=== PATIENT | male | born 1955 | race Caucasian/White ===

== ENCOUNTER → 2018-05-01 | Outpatient (CLI) | payer OTHER ==
[~2018-05-01] MED LIST: REGADENOSON 0.4 MG/5 ML DISP.SYRIN. IV ONE
--- NOTE | 2018-05-01 16:37 | PCVCIMAG ---
APPROVED REPORT Imaging Protocol: Rest Tc-99m/Stress Tc-99m 1 day Study performed: 05/01/2018 09:37:09 Indication: MURMUR, RISK STRATIFICATION, PRE-OP(KNEE) Patient Location: Out-Patient Stress Nurse: Karen Crowell RN [place] Tech:KAROLINA StoutMT Ht: 5 ft 10 in Wt: 275 lbs BSA: 2.39 m2 HR: 48 bpm BP: 193/86 mmHg BMI: 39.4 Rhythm: Marked Sinus Bradycardia, PVCs Medical History Medications: Losartan, Bystolic, Pravastatin Allergies: No known drug allergies Cardiac Risk Factors: Age, HTN, Tobacco History (Current/Recent), Murmur Pretest Chest Pain Characteristics: No chest pain Exercise History: Indeterminate Physical Disabilities: Knees Meds Held (24 hrs): Bystolic Resting Data Rest SPECT myocardial perfusion imaging was performed in supine position 45 minutes following the intravenous injection of 16.8 mCi of Tc-99m Sestamibi. Time of rest injection: 924 Date: 05/01/2018 Administration Route: IV Administration Site: Right AC Pharmacologic Stress Pharmacologic stress test was performed by injecting Regadenoson 0.4 mg IV push over 10-15 seconds immediately followed by the intravenous injection of 45.1 mCi of Tc-99m Sestamibi. Time of stress injection: 1029 Date: 05/01/2018 Administration Route: IV Administration Site: Right AC Gated Stress SPECT was performed 45 minutes after stress injection. The images were gated to evaluate regional wall motion and calculate left ventricular ejection fraction. Stress Test Details Stress Test: Pharmacologic stress testing performed using 0.4 mg of regadenoson per 5 mL given IV over 10 seconds. Reason for pharmacologic stress test: Arthritis. HRMax Heart Rate (APMHR): 158 bpm Resting HR: 48 bpmTarget HR (85% APMHR): 134 bpm Max HR Achieved: 72 bpm % of APMHR: 45 Recovery HR: 54 bpm BP Resting BP: 193/86 mmHg Recovery BP: 173/83 mmHg ECG Resting ECG: Sinus Bradycardia Stress ECG: Sinus Rhythm ST Change: None Arrhythmia: PVCs Recovery ECG: Sinus Rhythm Recovery ST Change: None Clinical Reason for Termination: Completed protocol Stress Symptoms: Dyspnea, Headache Exercise duration: 0 min 55 sec Symptoms resolved with caffeine. Stress ECG Conclusion ECG: Non-ischemic Study Quality Study: Good Study Data Post stress, the left ventricular ejection was 62%.. SSS: 1 SRS: 2 SDS: 1 TID = 1.17. Perfusion No evidence of stress induced ischemia or prior myocardial infarction. Wall Motion Normal left ventricular function with no regional wall motion abnormalities. Moderate ventricular dilatation. Nuclear Conclusion No evidence of stress induced ischemia or prior myocardial infarction. Normal left ventricular function with no regional wall motion abnormalities. Moderate ventricular dilatation. Post stress, the left ventricular ejection was 62%. No prior study available for comparison. Interpreted by: Jacinto Prasad MD Electronically Approved: 05/01/2018 16:33:08 <Conclusion> ECG: Non-ischemic
--- NOTE | 2018-05-01 17:08 | PCVCIMAG ---
APPROVED REPORT Study performed: 05/01/2018 08:24:56 EXAM: Comprehensive 2D, Doppler, and color-flow Echocardiogram Patient Location: Echo lab Room #: 2Status: routine BSA: 2.39 HR: 54 bpmBP: 144/76 mmHg Rhythm: Bradycardia Other Information Study Quality: Good Risk Factors: Cardiac Risk Factors: HTN, TOBACCO USE, ALCOHOL Indications Pre-Op Murmur Hypertension/HDD 2D Dimensions LVEF(%): 54.79 (>50%) IVSd: 10.09 (7-11mm)LVOT Diam: 22.72 (18-24mm) LVDd: 53.25 mm PWd: 7.57 (7-11mm)Ascending Ao: 36.26 (22-36mm) LVDs: 37.97 (25-40mm) Left Atrium: 48.85 (27-40mm) Aortic Root: 19.91 mm LV Single Plane 4CH: 60.71 % LV Single Plane 2CH: 55.14 %Meza's LVEF: 57.92 % Volumes Left Atrial Volume (Systole) Single Plane 4CH: 118.59 mLSingle Plane 2CH: 136.36 mL Biplane LA Volume: 131.00 mLLA ESV Index: 55.00 mL/m2 Aortic Valve AoV Peak Chandu.: 2.54 m/s AO Peak Gr.: 25.40 mmHgLVOT Max P.64 mmHg AO Mean Gr.: 17.25 mmHgLVOT Mean P.33 mmHg AO V2 Mean: 2.01 m/sLVOT Max V: 1.06 m/s AO V2 VTI: 67.53 cmLVOT Mean V: 0.70 m/s THANIA (VTI): 1.75 [id number] V1 VTI: 29.11 cm THANIA Vmax: 1.69 cm2 SV (LVOT): 117.90 mL Mitral Valve E/A Ratio: 1.6 MV Decel. Time: 322.07 ms MV E Max Chandu.: 1.05 m/s MV A Chandu.: 0.67 m/s IVRT: 86.51 ms TDI E/Lateral E': 11.67E/Medial E': 11.67 Medial E' Chandu.: 0.09 m/s Lateral E' Chandu.: 0.09 m/s Pulmonary Valve PV Peak Chandu.: 1.04 m/sPV Peak Gr.: 4.35 mmHg Pulmonary Vein P Vein S: 0.74 m/sP Vein A: 0.28 m/s P Vein D: 0.57 m/sP Vein A Dur.: 79.6 msec P Vein S/D Ratio: 1.30 Tricuspid Valve TR Peak Chandu.: 1.42 m/s TR Peak Gr.: 8.09 mmHg TV Vmax: 0.87 m/sPA Pressure: 18.00 mmHg Left Ventricle The left ventricle is normal size. There is normal LV segmental wall motion. There is normal left ventricular wall thickness. Left ventricular systolic function is normal. The left ventricular ejection fraction is within the normal range. LVEF is 55-60%. The left ventricular diastolic function is normal. Right Ventricle The right ventricle is normal size. The right ventricular systolic function is normal. Atria Left atrium is severely dilated. Right atrium is mildly dilated. Aortic Valve Aortic valve is trileaflet. Aortic valve leaflets are moderately sclerotic with decreased opening. No aortic regurgitation is present. Highest mean aortic valve gradient is 17_mmHg. Peak aortic valve gradient is 26_mmHg. Calculated THANIA by the continuity equation is 1.7 cm2. Mild aortic stenosis. Mitral Valve The mitral valve is normal in structure. Mild mitral annular calcification. There is no mitral valve regurgitation noted. No evidence of mitral valve stenosis. Tricuspid Valve The tricuspid valve is normal in structure. There is trivial tricuspid valve regurgitation noted. Pulmonic Valve The pulmonary valve is normal in structure. There is no pulmonic valvular regurgitation. Great Vessels The aortic root is normal in size. The ascending aorta is normal in size. Aortic arch is normal in caliber. IVC is normal in size and collapses <50% with inspiration. Pericardium There is no pericardial effusion. There is no pleural effusion. <Conclusion> The left ventricle is normal size. LVEF is 55-60%. The right ventricle is normal size. The right ventricular systolic function is normal. Left atrium is severely dilated. Right atrium is mildly dilated. Aortic valve is trileaflet. Aortic valve leaflets are moderately sclerotic with decreased opening. Highest mean aortic valve gradient is 17_mmHg. Peak aortic valve gradient is 26_mmHg. Calculated THANIA by the continuity equation is 1.7 cm2. Mild aortic stenosis. The mitral valve is normal in structure. Mild mitral annular calcification. There is no mitral valve regurgitation noted. There is trivial tricuspid valve regurgitation noted. The aortic root is normal in size. There is no pericardial effusion.
== END | disposition home or self-care (01) ==
LOC: PCVCIMAG 09:16
PROVIDERS: ATTEND Internal Medicine Cardiovascular Disease
DX: Z01.818 Encounter for other preprocedural examination (principal); R01.1 Cardiac murmur, unspecified
CPT/HCPCS: 78452; 93017; 93306; A9500; J2785